=== PATIENT | female | born 1945 | race Caucasian/White ===

== ENCOUNTER 2017-09-30 11:00 | Inpatient (IN) | payer OTHER ==
[2017-10-01] MEDS ORDERED: ASACOL HD800 MG PO (12:00)
[2017-10-01] MEDS ORDERED: LIPITOR20 MG PO (12:00)
[2017-10-01] MEDS ORDERED: METOPROLOL SUCC25 MG PO (12:00)
[2017-10-01] MEDS ORDERED: ATACAND HCT 161 EACH PO (12:01)
[2017-10-01] MEDS ORDERED: B COMPLEX-FOLI1 EACH PO (12:02)
[2017-10-01] MEDS ORDERED: VITAMIN D-32000 UNIT PO (12:02)
== END 2017-10-08 16:45 | disposition home or self-care (01) | DRG 330 ==
LOC: SURH 10-05 05:50 → O/R 10-05 05:50 → EDBD 10-05 11:00 → SURG 10-05 12:52 → O/R 10-05 15:45 → SURH 10-05 17:09
PROVIDERS: Colon & Rectal Surgery
PROC: 0DT80ZZ Resection of Small Intestine, Open Approach (ICD-10-PCS; 2017-10-05)
PROC: 0DQE0ZZ Repair Large Intestine, Open Approach (ICD-10-PCS; 2017-10-05)
PROC: 0DTJ0ZZ Resection of Appendix, Open Approach (ICD-10-PCS; 2017-10-05)
PROC: 0DBU0ZZ Excision of Omentum, Open Approach (ICD-10-PCS; 2017-10-05)
PROC: 0TQB0ZZ Repair Bladder, Open Approach (ICD-10-PCS; 2017-10-05)
PROC: 0UQG0ZZ Repair Vagina, Open Approach (ICD-10-PCS; 2017-10-05)
PROC: 0DJD8ZZ Inspection of Lower Intestinal Tract, Via Natural or Artificial Opening Endoscopic (ICD-10-PCS; 2017-10-05)
PROC: 0DTE0ZZ Resection of Large Intestine, Open Approach (ICD-10-PCS; principal; 2017-10-05 15:45)
DX: K57.20 Diverticulitis of large intestine with perforation and abscess without bleeding (principal); N82.3 Fistula of vagina to large intestine; K50.113 Crohn's disease of large intestine with fistula; N99.72 Accidental puncture and laceration of a genitourinary system organ or structure during other procedure; Z43.3 Encounter for attention to colostomy; I11.9 Hypertensive heart disease without heart failure; E78.00 Pure hypercholesterolemia, unspecified